=== PATIENT | female | born 2000 | race Caucasian/White ===

== ENCOUNTER → 2024-06-01 14:38 | Outpatient (REF) | payer OTHER, SELFPAY ==
[2024-06-01 15:58] LABS: Hepatitis B Surface Antigen Negative (Negative)
[2024-06-01 16:08] LABS: HIV Combo Negative (Negative)
[2024-06-01 16:16] LABS: Hepatitis B Surface Antibody Negative; Hepatitis C Antibody Negative (Negative)
== END ==
LOC: OHS 14:38
PROVIDERS: ATTENDING PHYSICIAN Nurse Practitioner Adult Health
DX: Z57.8 Occupational exposure to other risk factors (principal)
CPT/HCPCS: 86706; 86803; 87340; 87389

== ENCOUNTER → 2024-07-23 18:06 | Outpatient (REF) | payer OTHER, SELFPAY ==
[2024-07-23 19:36] LABS: Hepatitis B Surface Antibody Negative
== END ==
LOC: OHS 18:06
PROVIDERS: ATTENDING PHYSICIAN Nurse Practitioner
DX: Z23 Encounter for immunization (principal)
CPT/HCPCS: 86706